=== PATIENT | female | born 1935 | race Caucasian/White ===

== ENCOUNTER → 2017-07-05 09:36 | Outpatient (CLI) | payer MEDICARE, OTHER ==
[2015-06-26 06:58] VITALS: BMI 26.6
[~2017-07-05 09:36] MED LIST: ACETAMINOPHEN325 MG PO; BACTRIM DS TABL1 TAB PO; CARAFATE1 G PO; CARAFATE1 G/10 ML PO; DOMPERIDONE PO; GAS-X180 MG PO; LEVAQUIN500 MG PO; LEVSIN/ANASP0.125 MG PO; OS-CAL 500+D TA1 TAB PO; PEPCID20 MG PO; PERCOCET 10/3251 TA1 PO; PHAZYME180 MG PO; PHENERGAN25 MG RC; PRAVACHOL20 MG PO; PRESERVISION AR1 CAP PO; PRILOSEC20 MG PO; SENOKOT-S TABLE1 TAB PO; STOOL SOFTENER250 MG PO; SYNTHROID150 MCG PO; ZOFRAN ODT4 MG/UDTAB PO
== END | disposition home or self-care (01) ==
LOC: D.RAD 09:36
DX: K21.0 Gastro-esophageal reflux disease with esophagitis (principal)

== ENCOUNTER 2017-07-13 07:21 | Outpatient (CLI) | payer MEDICARE, OTHER ==
[2015-06-26 06:58] VITALS: BMI 26.6
== END 2017-07-13 09:30 ==
LOC: D.OPS 07:21
DX: K21.0 Gastro-esophageal reflux disease with esophagitis (principal)

== ENCOUNTER 2017-08-02 09:16 | Inpatient (IN) | payer MEDICARE, OTHER ==
[2017-08-02] VITALS (8 sets, daily range): BP systolic 139–171; BP diastolic 55–74; BMI 29.0; BMI 26.6
--- NOTE | ~2017-08-02 | OP ---
PATIENT NAME: DAVID MCKEON MEDICAL RECORD: [id number] :33 LOCATION:[id number] ADMISSION DATE:08/02/17 SURGEON: RUBEN PULIDO MD DATE OF OPERATION: 08/02/2017 SURGEON: Ruben Pulido MD PREOPERATIVE DIAGNOSES: 1. Achalasia. 2. Gastroesophageal reflux disease with esophagitis. 3. History of fundoplication. 4. Supradiaphragmatic esophageal diverticulum. POSTOPERATIVE DIAGNOSES: 1. Achalasia. 2. Gastroesophageal reflux disease with esophagitis. 3. History of fundoplication. 4. Supradiaphragmatic esophageal diverticulum. PROCEDURES PERFORMED: 1. Laparoscopic hiatal hernia repair. 2. Laparoscopic Toupet fundoplication. 3. Laparoscopic lysis of adhesions. ANESTHESIA: General. COMPLICATIONS: None. SPECIMENS: None. Case was clean. OPERATIVE COURSE: After consent was obtained, the patient was taken to the operating room and placed in the supine position on the operating table. Next, general anesthesia was given via endotracheal intubation after a timeout was performed confirming the correct patient and procedure. The abdomen was prepped and draped in typical sterile fashion. Local anesthetic was injected just above the umbilicus. A stab incision was made with an 11-blade scalpel. The abdomen was entered with an 11-mm bladeless optical trocar under direct laparoscopic vision. Adequate pneumoperitoneum was achieved. The abdominal cavity was inspected. No evidence of bleeding. The patient was then placed in the steep reverse Trendelenburg position, all remaining trocars were then placed at this time, 12-mm trocar and 5-mm trocar in the right lateral quadrant, 5-mm trocar in the left lateral quadrant, Annie liver retractor in the subxiphoid position. The left lobe of liver was elevated exposing the gastroesophageal junction and diaphragmatic hiatus. The patient then had 2 previous endoscopic transoral incisionless fundoplications. There was significant scar tissue noted at the GE junction and diaphragmatic hiatus. The T-bar sutures were noticed from the TIF device circumferentially around the esophagus and extensive lysis of adhesion was performed taking greater than 50% of the operative time, the greater curvature of stomach was mobilized along the upper third of the stomach and short gastric and Harmonic scalpel dissection. OPERATIVE REPORT [id number] DAVID MCKEON Dissection continued along the greater curvature and the cardia into the left crura was identified. The gastrohepatic ligament was then opened. Dissection in the right crura, dissection continued posteriorly and then anteriorly until a full segmental dissection was done, the hernia sac was excised. The tissues were meticulously dissected until the previous fundoplication was unfold. At this time, the diaphragmatic hernia repair was performed with a Stratafix suture. Prior to closure, mediastinal dissection was performed until approximately 4 to 6 cm of intra-abdominal esophagus was obtained. Once the diaphragmatic crura was reapproximated, the Alexis-Freddy was passed posterior to the gastroesophageal junction. A loose Toupet fundoplication was performed using 3-0 Stratafix suture and a 270 wrap. Shaq powder was applied in the area of the fundoplication. At this time, the 5 mm scope was used and the 11-mm and 12-mm trocars were closed with 0 Vicryl suture in a Alexis-Freddy suture passer. The Annie liver retractor was removed. The abdomen was copiously irrigated and suctioned. Careful attention was paid. There was no evidence of bowel injury. No evidence of bleeding. All remaining instruments were removed. Remaining trocars were removed. Skin was closed with 4-0 Monocryl, Mastisol, and Steri-Strips. At the end of the case, all needle and instrument counts were correct. No complications occurred. The patient extubated and transferred to the PACU in stable condition. TRANSINT:[id number] Voice Confirmation ID: [id number] DOCUMENT ID: [id number] RUBEN PULIDO MD at 2057 CC: [id number] DICTATION DATE: 08/02/17 1535 COVERER: 08/02/171950 ADM IN [facility] [address] [place] [address]
--- NOTE | ~2017-08-02 | EC ---
PATIENT:DAVID MCKEON DATE OF SERVICE: 08/02/17 SEX: F MEDICAL RECORD: [id number] DATE OF : 33 LOCATION:[facility] AGE OF PATIENT: 82 ADMISSION DATE: 08/02/17 REFERRING PHYSICIAN: INTERPRETING PHYSICIAN: ALBERTO JUAREZ MD ECHOCARDIOGRAM REPORT ECHO CHARGES 4 ECHO COMPLETE CLINICAL DIAGNOSIS: PULMONARY EMBOLI ECHOCARDIOGRAPHIC MEASUREMENTS (adult normal given) AC root (d.<3.7cm) 3.2 cm LV Septum d (<1.2 cm> 1.1 cm Valve Excursion 1.5 cm LV Septum (systole) 1.5 cm Left Atria (s.<4.0cm> 4.7 cm LVPW d(<1.2cm) 1.4 cm RV (d.<2.3cm) 4.0 cm LVPW (sytole) 1.8 cm LV diastole(<5.6CM) 4.7 cm MV E-F(>70mm/sec) cm LV systole 3.2 cm LVOT Diameter 1.7 cm MV exc.(>10mm) 2.0 cm Est.ejection fraction (50-75%) % Pericardial Effusion N DOPPLER: LVIT cm/sec A 90.0 cm/sec E 117 cm/sec LA cm/sec RVSP 34 mmHg LVOT 114 cm/sec AOP1/2T 549 m/s Asc. Ao 189 cm/sec RVOT cm/sec RA cm/sec PA cm/sec AV Gradient Peak 14.26mmHg AV Mean 7.33 mmHg AV Area 1.5 cm MV Gradient Peak 6.54 mmHg MV Mean 1.89 mmHg MV Area cm COMMENTS: [employer]: [place] [employer] Helper: 2 Dr. Sheth TAPE# PACS DATE OF SERVICE: 08/05/2017 Adequate 2D echo, color flow, spectral Doppler, M-mode. No LVH. LV internal dimensions are normal. Wall motion is normal. EF is greater than or equal to 55%. Aortic valve is tricuspid. No evidence of stenosis by Doppler interrogation. The left atrium is dilated at 4.7 cm. Mitral valve is thickened. Mild MR. Right-sided chambers grossly normal. Mild TR by color flow imaging. ECHOCARDIOGRAM REPORT [id number] DAVID MCKEON TRANSINT:[id number] Voice Confirmation ID: [id number] DOCUMENT ID: [id number] 08/16/2017 Edited to correct date of service, dmm. ALBERTO JUAREZ MD at 1030 CC: [id number] DICTATION DATE: 08/06/17 [address] [employer]: 08/06/17 2346 DIS IN 08/06/17 [facility] [address] [place] [id number]
[~2017-08-02 09:16] MED LIST changes: +COZAAR50 MG; +PROTONIX40 MG PO; +ZIAC 10-6.25 MG1 TAB PO
[2017-08-02] MEDS ORDERED: PRESERVISION AR1 CAP PO (10:28)
[2017-08-02] MEDS ORDERED: STOOL SOFTENER240 MG PO (10:28)
[2017-08-02] MEDS ORDERED: NULEV0.125 MG (10:28)
[2017-08-02] MEDS ORDERED: METHENAMINE HIPP1 GM PO (10:30)
[2017-08-02] MEDS ORDERED: CIPRO500 MG PO (10:31)
[2017-08-02] MEDS ORDERED: DOK PLUS TABL1 UDTAB PO (10:31)
[2017-08-02 10:50] LABS: BASOPHILS 0.5 % (0-2); EOSINOPHILS 1.2 % (0-7); HEMATOCRIT 29.6 % (36.0-48.0); HEMOGLOBIN 9.5 g/dL (12-16); IMMATURE GRANULOCYTES 0.2 % (0-5); LYMPHOCYTES 24.4 % (15-50); MCH 30.3 pg (26.0-34.0); MCHC 32.1 g/dL (31.0-37.0); MCV 94.3 fL (80.0-100.0); MONOCYTES 11.8 % (2-11); NEUTROPHILS 61.9 % (40-80); PLATELET COUNT 270 10x3/uL (130-400); RBC 3.14 10x6/uL (4.00-5.40); RDW 12.9 % (11.5-14.5); WBC 4.3 10x3/uL (4.8-10.8)
[2017-08-02 11:01] LABS: ANION GAP 13.2 mmol/L (8-16); CALCIUM 8.7 mg/dL (8.5-10.1); CARBON DIOXIDE 25.5 mmol/L (21.0-32.0); CREATININE - SERUM 0.8 mg/dL (0.6-1.3); POTASSIUM - SERUM 3.7 mmol/L (3.5-5.1)
[2017-08-03 04:00] VITALS: BP 148/58
[2017-08-03 05:27] LABS: BASOPHILS 0 % (0-2); EOSINOPHILS 0 % (0-7); HEMOGLOBIN 9.4 g/dL (12-16); IMMATURE GRANULOCYTES 0.2 % (0-5); MCH 30.6 pg (26.0-34.0); MCHC 32.4 g/dL (31.0-37.0); MCV 94.5 fL (80.0-100.0); MEAN PLATELET VOLUME 10.3 fL (7.4-10.4); MONOCYTES 9.2 % (2-11); NEUTROPHILS 86.6 % (40-80); PLATELET COUNT 271 10x3/uL (130-400); RBC 3.07 10x6/uL (4.00-5.40); RDW 13.2 % (11.5-14.5)
[2017-08-03 05:31] LABS: WBC 12.4 10x3/uL (4.8-10.8)
[2017-08-03 05:47] LABS: ALBUMIN 3.4 g/dL (3.4-5.0); ALKALINE PHOSPHATASE 70 U/L (46-116); ALT (SGPT) 52 U/L (10-68); CALC OSMOLALITY 262 mosm/kg (275-300); CALCIUM 8.2 mg/dL (8.5-10.1); CHLORIDE - SERUM 97 mmol/L (98-107); CREATININE - SERUM 0.7 mg/dL (0.6-1.3); GLUCOSE 136 mg/dL (74-106); PROTEIN - SERUM 6.1 g/dL (6.4-8.2); SODIUM 130 mmol/L (136-145); UREA NITROGEN 13 mg/dL (7-18); eGFR NON AFRICAN AMERICAN 85 mL/min (90-120)
[2017-08-03 05:52] LABS: POTASSIUM - SERUM 4.4 mmol/L (3.5-5.1)
[2017-08-03 08:15] VITALS: BP 157/67
[2017-08-03] MEDS ORDERED: HYDROCODON-ACE1 EAC7 PO (09:54)
[2017-08-03 11:59] VITALS: BP 149/60
[2017-08-03 15:48] VITALS: BP 144/57
[2017-08-03 20:00] VITALS: BP 166/64
[2017-08-04 04:00] VITALS: BP 171/65
[2017-08-04 04:53] LABS: BASOPHILS 0 % (0-2); EOSINOPHILS 0.3 % (0-7); HEMATOCRIT 25.3 % (36.0-48.0); HEMOGLOBIN 8.7 g/dL (12-16); IMMATURE GRANULOCYTES 0.2 % (0-5); LYMPHOCYTES 11.4 % (15-50); MCHC 34.4 g/dL (31.0-37.0); MEAN PLATELET VOLUME 9.9 fL (7.4-10.4); MONOCYTES 9.2 % (2-11); NEUTROPHILS 78.9 % (40-80); PLATELET COUNT 243 10x3/uL (130-400); RBC 2.72 10x6/uL (4.00-5.40); RDW 13.2 % (11.5-14.5)
[2017-08-04 04:57] LABS: WBC 8.7 10x3/uL (4.8-10.8)
[2017-08-04 05:14] LABS: CALC OSMOLALITY 251 mosm/kg (275-300); CALCIUM 8.1 mg/dL (8.5-10.1); CARBON DIOXIDE 24.1 mmol/L (21.0-32.0); CHLORIDE - SERUM 96 mmol/L (98-107); CREATININE - SERUM 0.6 mg/dL (0.6-1.3); GLUCOSE 103 mg/dL (74-106); POTASSIUM - SERUM 3.8 mmol/L (3.5-5.1); SODIUM 126 mmol/L (136-145); UREA NITROGEN 11 mg/dL (7-18); eGFR NON AFRICAN AMERICAN > 90 mL/min (90-120)
[2017-08-04 08:02] VITALS: BP 122/53
[2017-08-04 12:50] VITALS: BP 161/70
[2017-08-04 16:13] VITALS: BP 109/61
[2017-08-04 20:00] VITALS: BP 147/59; BP 95/52
[2017-08-05 04:00] VITALS: BP 114/81
[2017-08-05 04:43] LABS: BASOPHILS 0.2 % (0-2); EOSINOPHILS 1.2 % (0-7); HEMATOCRIT 25.4 % (36.0-48.0); HEMOGLOBIN 8.4 g/dL (12-16); IMMATURE GRANULOCYTES 0.3 % (0-5); LYMPHOCYTES 15.5 % (15-50); MCH 30.8 pg (26.0-34.0); MCHC 33.1 g/dL (31.0-37.0); MEAN PLATELET VOLUME 9.7 fL (7.4-10.4); MONOCYTES 11.7 % (2-11); NEUTROPHILS 71.1 % (40-80); PLATELET COUNT 257 10x3/uL (130-400); RBC 2.73 10x6/uL (4.00-5.40); WBC 6.6 10x3/uL (4.8-10.8)
[2017-08-05 04:53] LABS: CALC OSMOLALITY 252 mosm/kg (275-300); CALCIUM 8.1 mg/dL (8.5-10.1); CARBON DIOXIDE 25.6 mmol/L (21.0-32.0); CHLORIDE - SERUM 96 mmol/L (98-107); CREATININE - SERUM 0.6 mg/dL (0.6-1.3); GLUCOSE 95 mg/dL (74-106); POTASSIUM - SERUM 3.8 mmol/L (3.5-5.1); SODIUM 127 mmol/L (136-145); eGFR NON AFRICAN AMERICAN > 90 mL/min (90-120)
[2017-08-05 04:55] LABS: UREA NITROGEN 8 mg/dL (7-18)
[2017-08-05 07:58] VITALS: BP 125/60
[2017-08-05 12:23] VITALS: BP 91/58
[2017-08-05 15:55] VITALS: BP 117/64
[2017-08-05 20:00] VITALS: BP 180/60
[2017-08-06] VITALS: BP 168/67
[2017-08-06 04:00] VITALS: BP 157/68
[2017-08-06 05:39] LABS: BASOPHILS 0.2 % (0-2); EOSINOPHILS 1.6 % (0-7); HEMATOCRIT 24.6 % (36.0-48.0); HEMOGLOBIN 8.1 g/dL (12-16); IMMATURE GRANULOCYTES 0.3 % (0-5); LYMPHOCYTES 14.3 % (15-50); MCH 30.5 pg (26.0-34.0); MCHC 32.9 g/dL (31.0-37.0); MCV 92.5 fL (80.0-100.0); MEAN PLATELET VOLUME 9.8 fL (7.4-10.4); MONOCYTES 11.9 % (2-11); NEUTROPHILS 71.7 % (40-80); PLATELET COUNT 264 10x3/uL (130-400); RBC 2.66 10x6/uL (4.00-5.40); RDW 12.5 % (11.5-14.5); WBC 6.3 10x3/uL (4.8-10.8)
[2017-08-06 05:57] LABS: CALC OSMOLALITY 254 mosm/kg (275-300); CARBON DIOXIDE 23.9 mmol/L (21.0-32.0); CHLORIDE - SERUM 95 mmol/L (98-107); CREATININE - SERUM 0.5 mg/dL (0.6-1.3); GLUCOSE 99 mg/dL (74-106); POTASSIUM - SERUM 3.4 mmol/L (3.5-5.1); SODIUM 128 mmol/L (136-145); UREA NITROGEN 7 mg/dL (7-18); eGFR NON AFRICAN AMERICAN > 90 mL/min (90-120)
[2017-08-06 09:13] VITALS: BP 106/68
[2017-08-06] MEDS ORDERED: LEVAQUIN500 MG PO (11:23)
[2017-08-06] MEDS ORDERED: BACLOFEN10 MG PO (11:23)
[2017-08-06] MEDS ORDERED: ELIQUIS5 MG PO (11:23)
[2017-08-06 12:29] VITALS: BP 176/72
[2017-08-06 14:54] LABS: APPEARANCE CLEAR (CLEAR); BILIRUBIN NEGATIVE (NEGATIVE); COLOR YELLOW (YELLOW); GLUCOSE NEGATIVE (NEGATIVE); KETONE NEGATIVE (NEGATIVE); NITRITE NEGATIVE (NEGATIVE); PROTEIN NEGATIVE (NEGATIVE); UROBILINOGEN NORMAL (NORMAL)
[2017-08-06 14:55] LABS: EPITHELIAL CELLS OCC /hpf (0-5); RED CELLS - URINE OCC /hpf (0-5); WHITE CELLS - URINE 0-5 /hpf (0-5)
== END 2017-08-06 15:57 | disposition home health service (06) | DRG 326 ==
LOC: D.SDCHOLD 09:16 → D.MS 09:16 → D.SDCHOLD 11:30 → D.OPS 11:45 → D.SDCHOLD 11:45 → EDSTATUS 11:45 → D.PAN 11:45 → D.MS 16:23
PROVIDERS: Anesthesiology; Internal Medicine Nephrology; Surgery
PROC: 0DN54ZZ Release Esophagus, Percutaneous Endoscopic Approach (ICD-10-PCS; 2017-08-02)
PROC: 0DV44ZZ Restriction of Esophagogastric Junction, Percutaneous Endoscopic Approach (ICD-10-PCS; principal; 2017-08-02 11:30)
PROC: 0BQT4ZZ Repair Diaphragm, Percutaneous Endoscopic Approach (ICD-10-PCS; 2017-08-02 11:30)
DX: K22.0 Achalasia of cardia (principal); I26.99 Other pulmonary embolism without acute cor pulmonale; E87.1 Hypo-osmolality and hyponatremia; D62 Acute posthemorrhagic anemia; K21.0 Gastro-esophageal reflux disease with esophagitis; K57.10 Diverticulosis of small intestine without perforation or abscess without bleeding; E03.9 Hypothyroidism, unspecified; F32.9 Major depressive disorder, single episode, unspecified; R13.10 Dysphagia, unspecified; R09.02 Hypoxemia

== ENCOUNTER → 2017-08-17 10:36 | Outpatient (CLI) | payer MEDICARE, OTHER ==
[2017-08-02 17:36] VITALS: BMI 26.6
[~2017-08-17 10:36] MED LIST changes: +BACLOFEN10 MG PO; +CIPRO500 MG PO; +DOK PLUS TABL1 UDTAB PO; +ELIQUIS5 MG PO; +HYDROCODON-ACE1 EAC7 PO; +METHENAMINE HIPP1 GM PO; +NULEV0.125 MG; +STOOL SOFTENER240 MG PO
== END | disposition home or self-care (01) ==
LOC: D.RAD 10:36
DX: I26.99 Other pulmonary embolism without acute cor pulmonale (principal)

== ENCOUNTER → 2018-01-20 11:14 | Outpatient (CLI) | payer MEDICARE, OTHER ==
[2017-08-02 17:36] VITALS: BMI 26.6
== END | disposition home or self-care (01) ==
LOC: D.RT 01-17 13:00 → D.RAD 01-17 13:00 → D.RT 01-17 13:45 → D.RAD 01-17 14:00 → D.RT 01-19 13:00 → D.RAD 01-19 13:30 → D.RT 11:14
DX: J98.11 Atelectasis (principal); Z87.891 Personal history of nicotine dependence

== ENCOUNTER → 2018-06-28 08:22 | Outpatient (CLI) | payer MEDICARE, OTHER ==
[2017-08-02 17:36] VITALS: BMI 26.6
== END | disposition home or self-care (01) ==
LOC: D.RAD 08:22
DX: R19.5 Other fecal abnormalities (principal); D64.9 Anemia, unspecified; K58.1 Irritable bowel syndrome with constipation

== ENCOUNTER → 2018-10-24 09:40 | Outpatient (CLI) | payer MEDICARE, OTHER ==
[2017-08-02 17:36] VITALS: BMI 26.6
== END | disposition home or self-care (01) ==
LOC: D.RT 09:40
PROVIDERS: ATTEND Internal Medicine Pulmonary Disease
DX: Z87.891 Personal history of nicotine dependence (principal); J98.11 Atelectasis